=== PATIENT | female | born 1935 | race Caucasian/White ===

== ENCOUNTER 2017-07-12 13:07 | Emergency (ER) | payer MEDICARE, OTHER ==
[2017-07-12 13:28] VITALS: BP 120/81
[2017-07-12] MEDS ORDERED: BACITRACIN OINT TOP ONE (14:16)
--- NOTE | 2017-07-12 14:32 | ED Physician Documentation ---
PD HPI UPPER EXT INJURY - Stated complaint Stated Complaint: SKIN TEAR - Chief complaint Chief Complaint: Wound - History obtained from History obtained from: Patient - History of Present Illness Location: Other (She had a slip and fall this morning and she has 2 skin tears on the left upper extremity. She is up-to-date on tetanus. No other injuries. No head injury.) Review of Systems Constitutional: reports: Reviewed and negative Throat: reports: Reviewed and negative Cardiac: reports: Reviewed and negative PD PAST MEDICAL HISTORY - Past Surgical History Past Surgical History: Yes General: Cholecystectomy Ortho: Hip replacement, Knee replacement, Rotator cuff repair - Present Medications Home Medications: Ambulatory Orders Medication Instructions Recorded Confirmed Lisinopril 20 mg PO 07/12/17 Simvastatin [Zocor] 10 mg PO 07/12/17 07/12/17 - Allergies Allergies/Adverse Reactions: Allergies Allergy/AdvReac Type Severity Reaction Status Date / Time No Known Drug Allergies Allergy Verified 07/12/17 13:28 - Social History Does the pt smoke?: No Smoking Status: Never smoker ETOH Use: Wine Does the pt have substance abuse?: No - POLST Patient has POLST: No PD ED PE NORMAL - Vitals Vital signs reviewed: Yes - General General: Alert and oriented X 3, No acute distress - Extremities Extremities: Other (She is a skin tear over the left olecranon and the dorsum of the hand just distal to the wrist. There is no bony tenderness, and no limited range of motion.) - Neuro Neuro: Alert and oriented X 3, Normal speech Results - Vitals Vitals: Vital Signs - 24 hr 07/12/17 13:25 Temperature 36.3 C L Heart Rate 86 Respiratory 14 Rate Blood Pressure 120/81 H O2 Saturation 98 Oxygen O2 Source Room air Procedures - Laceration (location) Left arm Length in cm: 4 Wound type: Linear, Other (2 skin tears, one over the olecranon and one on the dorsum of the left hand, both were irrigated and closed with Steri-Strips.) Departure - Departure Disposition: 01 Home, Self Care Clinical Impression: Skin tear Condition: Good Record reviewed to determine appropriate education?: Yes Instructions: ED Laceration Ext Sutr Stap Tape Comments: Your blood pressure was elevated today on check into the emergency department. This does not mean that you have hypertension, it is a common phenomenon to come to the emergency department and have elevated blood pressure. I recommend that you see your primary care physician within the week to have it rechecked when you are feeling better.
== END 2017-07-12 14:47 | disposition home or self-care (01) ==
LOC: ED 13:07
DX: S51.012A Laceration without foreign body of left elbow, initial encounter (principal); S61.412A Laceration without foreign body of left hand, initial encounter; W01.0XXA Fall on same level from slipping, tripping and stumbling without subsequent striking against object, initial encounter; R03.0 Elevated blood-pressure reading, without diagnosis of hypertension
CPT/HCPCS: 99282; 99283; A9270